=== PATIENT | male | born 1990 | race African-American/Black ===

== ENCOUNTER 2023-09-13 12:45 | Emergency (ER) | payer OTHER ==
[~2023-09-13] VITALS: Ht 175.3 cm; Wt 91.0 kg
[2023-09-13 12:59] VITALS: O2SAT 97
[2023-09-13] MEDS ORDERED: TETRACAINE 0.5% OPHTH DROPS 4ML BOTHEYE ONE (14:45)
[2023-09-13] MEDS ORDERED: LATA2.5D14 EACHEYE (15:39)
[2023-09-13 17:10] VITALS: BP 118/80; PULSE 80; RESP 18; TEMP 98.7
== END 2023-09-13 17:15 | disposition home or self-care (01) ==
LOC: ER 12:45
DX: H53.453 Other localized visual field defect, bilateral (principal); Z88.0 Allergy status to penicillin; Z98.890 Other specified postprocedural states
CPT/HCPCS: 99283

== ENCOUNTER 2023-11-08 12:25 | Emergency (ER) | payer OTHER ==
[~2023-11-08] VITALS: Ht 175.3 cm; Wt 82.0 kg
[~2023-11-08 12:25] MED LIST: LATA2.5D14 EACHEYE
[2023-11-08 12:41] VITALS: BP 126/78; PULSE 90; RESP 16; TEMP 98.2; O2SAT 98
== END 2023-11-08 16:09 | disposition home or self-care (01) ==
LOC: ER 12:25
DX: R44.0 Auditory hallucinations (principal); Z00.00 Encounter for general adult medical examination without abnormal findings; Z68.26 Body mass index [BMI] 26.0-26.9, adult; Z88.8 Allergy status to other drugs, medicaments and biological substances; Z86.59 Personal history of other mental and behavioral disorders
CPT/HCPCS: 99283